=== PATIENT | male | born 2000 | race Caucasian/White ===

== ENCOUNTER 2023-11-09 20:17 | Emergency (ER) | payer OTHER ==
[~2023-11-09] VITALS: Ht 193 cm; Wt 103.8 kg
[2023-11-09 20:19] VITALS: BP 133/75; PULSE 76; RESP 16; TEMP 98.6; O2SAT 100
[2023-11-09 20:44] LABS: BASOPHILS % (AUTO) 0.4 % (0-1); EOSINOPHILS # (AUTO) 0.1 X10'3 (0-0.9); EOSINOPHILS % (AUTO) 0.9 % (0-6); HEMATOCRIT 39.4 % (42.0-52.0); HEMOGLOBIN 13.9 g/dl (14.0-17.9); LYMPHOCYTES # (AUTO) 2.5 X10'3 (1.1-4.8); LYMPHOCYTES % (AUTO) 29.4 % (21-51); MEAN CORPUSCULAR HEMOGLOBIN 31.8 PG (27.0-31.0); MEAN CORPUSCULAR HGB CONC 35.2 g/dL (33.0-36.5); MEAN CORPUSCULAR VOLUME 90.3 FL (78-98); MONOCYTES # (AUTO) 0.7 X10'3 (0-0.9); MONOCYTES % (AUTO) 8.7 % (2-12); NEUTROPHILS # (AUTO) 5.2 X10'3 (1.8-7.7); NEUTROPHILS % (AUTO) 60.6 % (42-75); PLATELET COUNT 237 X10'3 (140-440); RED BLOOD COUNT 4.37 X10'6 (4.70-6.10); WHITE BLOOD COUNT 8.5 X10'3 (4.5-11.0)
[2023-11-09 21:00] LABS: ALANINE AMINOTRANSFERASE 13 U/L (12-78); ALBUMIN 4.1 G/DL (3.4-5.0); ALBUMIN/GLOBULIN RATIO 1.3 (1.1-1.5); ALKALINE PHOSPHATASE 95 IU/L (46-116); ANION GAP 10 (8-16); ASPARTATE AMINO TRANSFERASE 16 U/L (10-37); BILIRUBIN,TOTAL 0.8 MG/DL (0.1-1.0); BLOOD UREA NITROGEN 14 MG/DL (7-18); BUN/CREATININE RATIO 10.9 (10.0-20.0); CALCIUM 9.2 MG/DL (8.5-10.1); CHLORIDE 108 MMOL/L (99-107); CREATININE 1.28 MG/DL (0.60-1.10); GLUCOSE 94 MG/DL (70-104); POTASSIUM 3.8 MMOL/L (3.5-5.1); SODIUM 143 MMOL/L (135-145); TOTAL PROTEIN 7.3 G/DL (6.4-8.2); eCRCL 108 ML/MIN; eGFR 68 ML/MIN
[2023-11-09 21:09] LABS: PRO BRAIN NATRIURETIC PEPTIDE 104 PG/ML (0-125)
== END 2023-11-09 21:42 | disposition home or self-care (01) ==
LOC: ER 20:17
DX: R07.89 Other chest pain (principal)
CPT/HCPCS: 36415; 71045; 80053; 83880; 84484; 85025; 93005; 99285

== ENCOUNTER 2025-02-22 08:43 | Outpatient (CLI) | payer OTHER ==
--- NOTE | 2025-02-23 18:56 | CARDIOLOGY REPORT ---
APPROVED REPORT EXAM: Comprehensive 2D, Doppler, and color-flow Echocardiogram. Patient Location: OUT-PATIENT Blood Pressure: 119/76 mmHg Heart Rate: 48 bpm Rhythm: Bradycardia Indications Dizziness HEARING CARE PROFESSIONAL: Gabriele Zelaya MD No Previous ECHO 2D Dimensions LA Diam3.7 cm IVSd 0.9 (0.7-1.1cm) LVDd 5.5 cm PWd 0.9 (0.7-1.1cm) IVSs 1.1 (0.8-1.2cm) LVDs 3.7 (2.5-4.0cm) PWs 1.4 (0.8-1.2cm) LVOT Diameter 2.07 (1.8-2.4cm) LVEF(%) 62.0 (>50%) IVC 13.79 mm FS (%) 33.8 % SV 92.0 ml M-Mode Dimensions Left Atrium(MM) 3.84 (2.5-4.0cm) Aortic Root 3.03 (2.2-3.7cm) MV EPSS 0.6 (<0.5cm) Aortic Valve AoV Peak James. 133.9 cm/s AoV VTI 25.1 cm AO Peak GR. 7.2 mmHg AO Mean GR. 4 mmHg LVOT VTI 24.87 cm LVOT Peak James. 104.9 cm/s BONY (VMAX) 2.63 cm2 BONY (VTI) 3.33 cm2 Mitral Valve MV E Velocity 62.2 cm/s MV DECEL TIME 252 ms MV A Velocity 47.2 cm/s MV PHT 71 ms E/A Ratio 1.3 MVA (PHT) 3.12 cm2 TDI E/Medial E' 4.2 Pulmonary Valve PV Peak Velocity 98.0 cm/s PV Peak Grad. 4 mmHg Tricuspid Valve TR P. Velocity 177 cm/s RAP ESTIMATE 10 mmHg TR Peak Gr. 13 mmHg RVSP 23 mmHg Pulmonary Vein S2 Velocity 45.99 cm/s PVa [id number] msec LEFT VENTRICLE Normal LV size and wall thickness. Overall systolic function is normal. LVEF is 60-65%. RIGHT VENTRICLE Right ventricle is mildly dilated with normal function. ATRIA The left atrium size is normal. AORTIC VALVE The aortic valve is normal in structure without stenosis. No insufficiency. MITRAL VALVE The mitral valve is normal in structure without stenosis. Trace regurgitation. TRICUSPID VALVE The tricuspid valve is normal in structure with trace regurgitation. PULMONIC VALVE The pulmonary valve is normal in structure without insufficiency. GREAT VESSELS The aortic root is normal in size. The ascending aorta is normal in size. The IVC is normal in size a nd collapses >50% with inspiration. PERICARDIUM Normal pericardium. No effusion. Other Information Study Quality: Adequate Conclusion Normal LV size and wall thickness. Overall systolic function is normal. LVEF is 60-65%. Right ventricle is mildly dilated with normal function. The left atrium size is normal. The aortic valve is normal in structure without stenosis. No insufficiency. The mitral valve is normal in structure without stenosis. Trace regurgitation. The tricuspid valve is normal in structure with trace regurgitation. Normal pericardium. No effusion.
== END 2025-02-22 23:59 | disposition home or self-care (01) ==
LOC: RAD 08:43
PROVIDERS: ATTEND Internal Medicine Interventional Cardiology
DX: R42 Dizziness and giddiness (principal)
CPT/HCPCS: 93306